=== PATIENT | male | born 1970 | race Two or more races ===

== ENCOUNTER 2020-11-24 11:31 | Emergency (ER) | payer MEDICAID, OTHER, SELFPAY ==
[~2020-11-24] VITALS: Ht 172.7 cm; Wt 86.4 kg
[~2020-11-24 11:31] MED LIST: IBUP-1984 PO
[2020-11-24 12:03] LABS: ALANINE AMINOTRANSFERASE 42 U/L (12-78); ALBUMIN 3.9 G/DL (3.4-5.0); ALBUMIN/GLOBULIN RATIO 1.2 (1.1-1.5); ALKALINE PHOSPHATASE 67 IU/L (46-116); ANION GAP 6 (8-16); ASPARTATE AMINO TRANSFERASE 23 U/L (10-37); BILIRUBIN,TOTAL 0.4 MG/DL (0.1-1.0); BLOOD UREA NITROGEN 18 MG/DL (7-18); CALCIUM 8.6 MG/DL (8.5-10.1); CHLORIDE 107 MMOL/L (99-107); GLUCOSE 116 MG/DL (70-104); POTASSIUM 3.8 MMOL/L (3.5-5.1); SODIUM 141 MMOL/L (135-145); TOTAL CARBON DIOXIDE 28.3 MMOL/L (24-32); TOTAL PROTEIN 7.1 G/DL (6.4-8.2); eGFR 79 ML/MIN
[2020-11-24 12:06] LABS: BASOPHILS # (AUTO) 0.1 X10'3 (0-0.2); BASOPHILS % (AUTO) 1.1 % (0-1); EOSINOPHILS # (AUTO) 0.1 X10'3 (0-0.9); EOSINOPHILS % (AUTO) 1.6 % (0-6); HEMATOCRIT 41.4 % (42.0-52.0); HEMOGLOBIN 14.1 g/dl (14.0-17.9); LYMPHOCYTES # (AUTO) 1.7 X10'3 (1.1-4.8); LYMPHOCYTES % (AUTO) 32.6 % (21-51); MEAN CORPUSCULAR HEMOGLOBIN 31.4 PG (27.0-31.0); MEAN CORPUSCULAR VOLUME 92.5 FL (78-98); MEAN PLATELET VOLUME 9.8 FL (7.4-10.4); MONOCYTES # (AUTO) 0.4 X10'3 (0-0.9); MONOCYTES % (AUTO) 6.8 % (2-12); NEUTROPHILS % (AUTO) 57.9 % (42-75); PLATELET COUNT 186 X10'3 (140-440); RED BLOOD COUNT 4.48 X10'6 (4.70-6.10); RED CELL DISTRIBUTION WIDTH 13.7 % (11.5-14.5); WHITE BLOOD COUNT 5.3 X10'3 (4.5-11.0)
[2020-11-24] MEDS ORDERED: pantoprazole 40 MG vial IV ONE (12:30)
[2020-11-24] MEDS ORDERED: PANT-47 PO (12:37)
[2020-11-24] MEDS ORDERED: pantoprazole 40mg Tablet.DR PO STA (13:31)
--- NOTE | 2020-11-24 13:33 | NUR ---
spoke to dr messina regarding potential st elevation in lead 5, wants a 12 lead ekg
--- NOTE | 2020-11-24 13:33 | NUR ---
SPOKE TO ANTONIA FERREIRA TO CHANGE PROTONIX IV TO PO
--- NOTE | 2020-11-24 13:56 | NUR ---
per dr messina no st changes noted on repeat ekg
[2020-11-24 13:57] VITALS: BP 122/76
== END 2020-11-24 14:02 | disposition home or self-care (01) ==
LOC: ER 11:31
DX: R07.89 Other chest pain (principal); R10.13 Epigastric pain; Z79.899 Other long term (current) drug therapy; Z95.0 Presence of cardiac pacemaker
CPT/HCPCS: 36415; 71045; 80053; 83880; 84484; 85025; 93005; 99285